=== PATIENT | female | born 1985 | race Two or more races ===

== ENCOUNTER → 2023-10-19 11:16 | Outpatient (REF) | payer BC, SELFPAY ==
[2023-10-23 22:26] LABS: HPV, High Risk Not Detected; HPV, High Risk Source Anal
== END ==
LOC: CLAB 11:16
PROVIDERS: ATTENDING PHYSICIAN Surgery
DX: Z72.51 High risk heterosexual behavior (principal)
CPT/HCPCS: 87624; 88112

== ENCOUNTER → 2023-11-14 06:29 | Day surgery (SDC) | payer OTHER, SELFPAY | LOC: GI 06:29 | PROVIDERS: ATTENDING PHYSICIAN Surgery | DX: K62.5 Hemorrhage of anus and rectum (principal); K64.9 Unspecified hemorrhoids | CPT/HCPCS: 45378 ==

== ENCOUNTER → 2023-12-20 07:43 | Outpatient (REF) | payer OTHER, SELFPAY | LOC: RAD 07:43 | PROVIDERS: ATTENDING PHYSICIAN Surgery; FAMILY PHYSICIAN Internal Medicine | DX: K64.2 Third degree hemorrhoids (principal); K62.5 Hemorrhage of anus and rectum; R15.9 Full incontinence of feces; Z72.51 High risk heterosexual behavior | CPT/HCPCS: 74270 ==

== ENCOUNTER 2024-05-02 06:36 | Outpatient (RCR) | payer OTHER, SELFPAY | END 2024-05-02 23:59 | disposition home or self-care (01) | LOC: RPT 06:36 | PROVIDERS: ATTENDING PHYSICIAN Surgery; FAMILY PHYSICIAN Internal Medicine | DX: N81.6 Rectocele (principal); M62.89 Other specified disorders of muscle; M62.81 Muscle weakness (generalized); R27.8 Other lack of coordination; M62.838 Other muscle spasm; Z73.6 Limitation of activities due to disability | CPT/HCPCS: 97162; 97530 ==

== ENCOUNTER 2024-06-02 13:04 | Outpatient (RCR) | payer OTHER, SELFPAY | END 2024-06-02 23:59 | disposition home or self-care (01) | LOC: RPT 13:04 | PROVIDERS: ATTENDING PHYSICIAN Surgery; FAMILY PHYSICIAN Internal Medicine | DX: N81.6 Rectocele (principal); M62.89 Other specified disorders of muscle; M62.81 Muscle weakness (generalized); R27.8 Other lack of coordination; M62.838 Other muscle spasm; Z73.6 Limitation of activities due to disability | CPT/HCPCS: 97014; 97112; 97140; 97530 ==

== ENCOUNTER 2024-07-07 17:02 | Outpatient (RCR) | payer OTHER, SELFPAY | END 2024-07-07 23:59 | disposition home or self-care (01) | LOC: RPT 17:02 | PROVIDERS: ATTENDING PHYSICIAN Surgery; FAMILY PHYSICIAN Internal Medicine | DX: N81.6 Rectocele (principal); M62.89 Other specified disorders of muscle; M62.81 Muscle weakness (generalized); R27.8 Other lack of coordination; M62.838 Other muscle spasm; Z73.6 Limitation of activities due to disability | CPT/HCPCS: 97014; 97112; 97140; 97530 ==

== ENCOUNTER 2024-08-08 08:52 | Outpatient (RCR) | payer OTHER, SELFPAY | END 2024-08-08 23:59 | disposition home or self-care (01) | LOC: RPT 08:52 | PROVIDERS: ATTENDING PHYSICIAN Surgery; FAMILY PHYSICIAN Internal Medicine | DX: N81.6 Rectocele (principal); M62.89 Other specified disorders of muscle; M62.81 Muscle weakness (generalized); R27.8 Other lack of coordination; Z73.6 Limitation of activities due to disability; M62.838 Other muscle spasm | CPT/HCPCS: 97110; 97112; 97140; 97530 ==

== ENCOUNTER 2024-08-25 17:03 | Outpatient (RCR) | payer OTHER, SELFPAY | END 2024-08-25 23:59 | disposition home or self-care (01) | LOC: RPT 17:03 | PROVIDERS: ATTENDING PHYSICIAN Surgery; FAMILY PHYSICIAN Internal Medicine | DX: N81.6 Rectocele (principal); M62.89 Other specified disorders of muscle; M62.81 Muscle weakness (generalized); R27.8 Other lack of coordination; M62.838 Other muscle spasm; Z73.6 Limitation of activities due to disability; R32 Unspecified urinary incontinence | CPT/HCPCS: 97014; 97112; 97140 ==

== ENCOUNTER 2024-09-15 15:55 | Outpatient (RCR) | payer OTHER, SELFPAY | END 2024-09-15 23:59 | disposition home or self-care (01) | LOC: RPT 15:55 | PROVIDERS: ATTENDING PHYSICIAN Surgery; FAMILY PHYSICIAN Internal Medicine | DX: N81.6 Rectocele (principal); M62.89 Other specified disorders of muscle; M62.81 Muscle weakness (generalized); R27.8 Other lack of coordination; M62.838 Other muscle spasm; Z73.6 Limitation of activities due to disability; R32 Unspecified urinary incontinence | CPT/HCPCS: 97014; 97110; 97112; 97140 ==

== ENCOUNTER 2024-12-02 12:49 | Outpatient (RCR) | payer OTHER, SELFPAY | END 2024-12-02 23:59 | disposition home or self-care (01) | LOC: RPT 12:49 | PROVIDERS: ATTENDING PHYSICIAN Surgery; FAMILY PHYSICIAN Internal Medicine | DX: N81.6 Rectocele (principal); M62.89 Other specified disorders of muscle; Z73.6 Limitation of activities due to disability; M62.81 Muscle weakness (generalized); R27.8 Other lack of coordination; M62.838 Other muscle spasm; R32 Unspecified urinary incontinence | CPT/HCPCS: 97110; 97112; 97140 ==

== ENCOUNTER 2025-05-23 11:44 | Observation (INO) | payer OTHER, SELFPAY ==
[2025-05-23 12:16] VITALS: BP 110/75; BMI 28.0
[2025-05-23 12:37] LABS: Hematocrit 32.3 % (37.0-47.0); Hemoglobin 11.6 g/dL (12.0-16.0); Mean Corp Hgb Conc. 35.9 g/dL (33.0-37.0); Mean Corpuscular Volume 86.4 fL (81.0-99.0); Nucleated Red Blood Cells % 0 %; Platelet Count 176 10^3/uL (130-400); Red Cell Dist. Width 12.1 % (11.5-14.5)
[2025-05-23 12:40] LABS: Urine Character Clear (Clear)
[2025-05-23] MEDS: PEPCID 20 MG PO (12:40)
[2025-05-23] MEDS: LR 1000 IV (12:42)
[2025-05-23 12:55] LABS: ALT (SGPT) 16 U/L (0-35); AST (SGOT) 23 U/L (14-36); Albumin 3.8 g/dl (3.5-5.0); Alkaline Phosphatase 80 U/L (38-126); Blood Urea Nitrogen 7 mg/dl (7-17); Calcium 9.0 mg/dl (8.4-10.2); Carbon Dioxide 20 mmol/L (22-30); Chloride 106 mmol/L (98-107); Estimated Creatinine Clearance 97 ml/min; Glucose 77 mg/dl (70-99); Potassium 4.0 mmol/L (3.5-5.1); Sodium 134 mmol/L (135-145); Total Protein 6.7 g/dl (6.3-8.2); Uric Acid 3.9 mg/dl (2.5-6.2); eGFR > 60.00
== END 2025-05-23 13:41 | disposition home or self-care (01) ==
LOC: LDRP 11:44
PROVIDERS: ADMITTING PHYSICIAN Advanced Practice Midwife; FAMILY PHYSICIAN Internal Medicine
DX: O21.9 Vomiting of pregnancy, unspecified (principal); Z3A.34 34 weeks gestation of pregnancy; H53.8 Other visual disturbances; R12 Heartburn; J30.2 Other seasonal allergic rhinitis; Z91.040 Latex allergy status
CPT/HCPCS: 80053; 81003; 82570; 84156; 84550; 85025; G0378

== ENCOUNTER 2025-05-30 02:42 | Observation (INO) | payer OTHER, SELFPAY ==
[2025-05-30 03:02] VITALS: BP 132/87
[2025-05-30 03:29] VITALS: BMI 27.8
[2025-05-30] MEDS: LR 1000 IV (03:30)
[2025-05-30] MEDS: TYLENOL 1000 MG PO (03:30)
[2025-05-30 03:51] LABS: Hematocrit 30.2 % (37.0-47.0); Hemoglobin 10.9 g/dL (12.0-16.0); Mean Corp Hgb Conc. 36.1 g/dL (33.0-37.0); Mean Corpuscular Volume 87.8 fL (81.0-99.0); Platelet Count 173 10^3/uL (130-400); Red Cell Dist. Width 12.2 % (11.5-14.5)
[2025-05-30 04:10] LABS: ALT (SGPT) 16 U/L (0-35); AST (SGOT) 22 U/L (14-36); Albumin 3.4 g/dl (3.5-5.0); Alkaline Phosphatase 78 U/L (38-126); Blood Urea Nitrogen 8 mg/dl (7-17); Calcium 9.0 mg/dl (8.4-10.2); Carbon Dioxide 21 mmol/L (22-30); Chloride 106 mmol/L (98-107); Estimated Creatinine Clearance 97 ml/min; Glucose 90 mg/dl (70-99); Potassium 3.8 mmol/L (3.5-5.1); Sodium 134 mmol/L (135-145); Total Protein 6.0 g/dl (6.3-8.2); eGFR > 60.00
== END 2025-05-30 04:45 | disposition home or self-care (01) ==
LOC: LDRP 02:42
PROVIDERS: ADMITTING PHYSICIAN Student in an Organized Health Care Education/Training Program
DX: O99.891 Other specified diseases and conditions complicating pregnancy (principal); R51.9 Headache, unspecified; R11.10 Vomiting, unspecified; Z3A.34 34 weeks gestation of pregnancy
CPT/HCPCS: 80053; 82570; 84156; 85027; G0378